=== PATIENT | female | born 1985 | race Two or more races ===

== ENCOUNTER 2022-10-15 19:46 | Emergency (ER) | payer OTHER ==
[~2022-10-15] VITALS: Ht 162.6 cm; Wt 59.0 kg
== END 2022-10-15 20:45 | disposition home or self-care (01) ==
LOC: ER 19:46
DX: R21 Rash and other nonspecific skin eruption (principal)

== ENCOUNTER → 2022-10-15 | Emergency (ER) | payer OTHER | END | disposition left against medical advice (07) | LOC: ER 09:57 | DX: Z53.21 Procedure and treatment not carried out due to patient leaving prior to being seen by health care provider (principal) ==